=== PATIENT | female | born 1985 | race Hispanic/Latino ===

== ENCOUNTER 2019-05-08 11:24 | Emergency (ER) | payer SELFPAY ==
--- NOTE | 2019-05-08 13:03 | ER ---
Nurse's Notes [facility] Name: Yesi Mcgee Age: 33 yrs Sex: Female : 1985 Arrival Date: 05/08/2019 Time: 11:27 Bed 23 Private MD: Diagnosis: Dental caries;Fever, unspecified Presentation: 05/08 11:43 Presenting complaint: Patient states: Had tooth pulled 4 days ago and is now aa1 experiencing pain, fever and headaches with anxiety after the procedure despite taking antibiotics. Transition of care: patient was not received from another setting of care. Onset of symptoms was May 05, 2019. Risk Assessment: Do you want to hurt yourself or someone else? Patient reports no desire to harm self or others. Initial Sepsis Screen: Does the patient meet any 2 criteria? No. Patient's initial sepsis screen is negative. Does the patient have a suspected source of infection? No. Patient's initial sepsis screen is negative. Care prior to arrival: None. 11:43 Method Of Arrival: Ambulatory aa1 11:43 Acuity: KATHE 4 aa1 Historical: - Allergies: 11:42 No Known Allergies; aa1 - Home Meds: 11:42 Dexamethasone Oral [Active]; Metronidazole Oral [Active]; Cephalexin Oral [Active]; aa1 - PSHx: 11:42 None; aa1 - Immunization history:: Adult Immunizations up to date. - Social history:: Smoking status: Patient/guardian denies using tobacco. - Ebola Screening: : Patient denies exposure to infectious person Patient denies travel to an Ebola-affected area in the 21 days before illness onset. - Family history:: not pertinent. Screenin:12 Abuse screen: Denies threats or abuse. Denies injuries from another. Nutritional ss screening: No deficits noted. Tuberculosis screening: Never had TB. Fall Risk None identified. Assessment: 11:45 General: Appears uncomfortable, Behavior is cooperative, anxious, Reports chills for ss 2-3 days, fever for 2-3 days, feeling ill for 2-3 days, fatigue for 2-3 days. Pain: Complains of pain in left mandible and left jaw Pain currently is 10 out of 10 on a pain scale. Neuro: Level of Consciousness is awake, alert, obeys commands, Oriented to person, place, time, situation. Cardiovascular: Capillary refill < 3 seconds is brisk in bilateral fingers. Respiratory: Airway is patent Respiratory effort is even, unlabored, Respiratory pattern is regular, symmetrical. GI: No signs and/or symptoms were reported involving the gastrointestinal system. : Reports burning with urination, urinary frequency. EENT: Nares are clear. Derm: Skin is intact, is healthy with good turgor, Skin is dry, Skin is pink, warm \T\ dry. normal. Vital Signs: 11:40 BP 166 / 109; Pulse 114; Resp 20; Temp 99.4(TE); Pulse Ox 100% on R/A; Weight 40.82 kg; aa1 Pain 10; ED Course: 11:27 Patient arrived in ED. am2 11:30 Patient has correct armband on for positive identification. ss 11:42 Arm band placed on right wrist. aa1 11:44 Triage completed. aa1 12:38 Miko Hollingsworth MD is Attending Physician. mckenzie 13:11 Lauryn Wu RN is Primary Nurse. ss 13:11 No provider procedures requiring assistance completed. Patient did not have IV access ss during this emergency room visit. Administered Medications: 13:12 Drug: Augmentin 875 mg Route: PO; ss 13:17 Follow up: Response: Medication administered at discharge. ss Outcome: 13:03 Discharge ordered by . [facility] 13:11 Discharged to home ambulatory, with family. ss 13:11 Condition: good 13:11 Discharge instructions given to patient, family, Instructed on discharge instructions, follow up and referral plans. medication usage, Demonstrated understanding of instructions, follow-up care, medications, Prescriptions given X 1. 13:18 Patient left the ED. ss Signatures: Padmini Chau, RN RN aa1 Miko Hollingsworth MD MD cha Smirch, Shelby, RN RN ss Moreno, Amanda amAnna
--- NOTE | 2019-05-08 13:04 | EDPHYS ---
Physician Documentation [facility] Name: Yesi Mcgee Age: 33 yrs Sex: Female : 1985 Arrival Date: 05/08/2019 Time: 11:27 Bed 23 Private MD: ED Physician Miko Hollingsworth HPI: 05/08 12:58 This 33 yrs old Female presents to ER via Ambulatory with complaints of mckenzie Headache, Fever, dental pain, Anxiety. 12:58 The patient complains of pain to the left cheek, mouth, left jaw and left mandible. [facility] describes the headache as aching. Onset: The symptoms/episode began/occurred 2 day(s) ago. Associated signs and symptoms: The patient has no apparent associated signs or symptoms. Severity of symptoms: At its worst the pain was mild, in the emergency department the pain is unchanged. Headache History: The patient has had previous headaches and this one is similar to previous episodes. The patient has not experienced similar symptoms in the past. Historical: - Allergies: 11:42 No Known Allergies; aa1 - Home Meds: 11:42 Dexamethasone Oral [Active]; Metronidazole Oral [Active]; Cephalexin Oral [Active]; aa1 - PSHx: 11:42 None; aa1 - Immunization history:: Adult Immunizations up to date. - Social history:: Smoking status: Patient/guardian denies using tobacco. - Ebola Screening: : Patient denies exposure to infectious person Patient denies travel to an Ebola-affected area in the 21 days before illness onset. - Family history:: not pertinent. ROS: 12:58 Constitutional: Negative for fever, chills, and weight loss, Eyes: Negative for injury, mckenzie pain, redness, and discharge, Neck: Negative for injury, pain, and swelling, Cardiovascular: Negative for chest pain, palpitations, and edema, Respiratory: Negative for shortness of breath, cough, wheezing, and pleuritic chest pain, Abdomen/GI: Negative for abdominal pain, nausea, vomiting, diarrhea, and constipation, Back: Negative for injury and pain, : Negative for injury, bleeding, discharge, and swelling, MS/Extremity: Negative for injury and deformity, Skin: Negative for injury, rash, and discoloration, Neuro: Negative for headache, weakness, numbness, tingling, and seizure, Psych: Negative for depression, anxiety, suicide ideation, homicidal ideation, and hallucinations, Allergy/Immunology: Negative for hives, rash, and allergies, Endocrine: Negative for neck swelling, polydipsia, polyuria, polyphagia, and marked weight changes, Hematologic/Lymphatic: Negative for swollen nodes, abnormal bleeding, and unusual bruising. 12:58 ENT: Positive for Teeth pain Exam: 12:58 Constitutional: This is a well developed, well nourished patient who is awake, alert, mckenzie and in no acute distress. Eyes: Pupils equal round and reactive to light, extra-ocular motions intact. Lids and lashes normal. Conjunctiva and sclera are non-icteric and not injected. Cornea within normal limits. Periorbital areas with no swelling, redness, or edema. ENT: Nares patent. No nasal discharge, no septal abnormalities noted. Tympanic membranes are normal and external auditory canals are clear. Oropharynx with no redness, swelling, or masses, exudates, or evidence of obstruction, uvula midline. Mucous membranes moist. Neck: Trachea midline, no thyromegaly or masses palpated, and no cervical lymphadenopathy. Supple, full range of motion without nuchal rigidity, or vertebral point tenderness. No Meningismus. Chest/axilla: Normal chest wall appearance and motion. Nontender with no deformity. No lesions are appreciated. Cardiovascular: Regular rate and rhythm with a normal S1 and S2. No gallops, murmurs, or rubs. Normal PMI, no JVD. No pulse deficits. Respiratory: Lungs have equal breath sounds bilaterally, clear to auscultation and percussion. No rales, rhonchi or wheezes noted. No increased work of breathing, no retractions or nasal flaring. Abdomen/GI: Soft, non-tender, with normal bowel sounds. No distension or tympany. No guarding or rebound. No evidence of tenderness throughout. Back: No spinal tenderness. No costovertebral tenderness. Full range of motion. Skin: Warm, dry with normal turgor. Normal color with no rashes, no lesions, and no evidence of cellulitis. MS/ Extremity: Pulses equal, no cyanosis. Neurovascular intact. Full, normal range of motion. Neuro: Awake and alert, GCS 15, oriented to person, place, time, and situation. Cranial nerves II-XII grossly intact. Motor strength 5/5 in all extremities. Sensory grossly intact. Cerebellar exam normal. Normal gait. Psych: Awake, alert, with orientation to person, place and time. Behavior, mood, and affect are within normal limits. 12:58 Head/face: Noted is swelling, that is mild, of the left jaw and left cheek. Vital Signs: 11:40 BP 166 / 109; Pulse 114; Resp 20; Temp 99.4(TE); Pulse Ox 100% on R/A; Weight 40.82 kg; aa1 Pain 05/19; MDM: 12:38 [facility] 13:02 Data reviewed: vital signs, nurses notes, lab test result(s), urinalysis. [facility] 05/08 13:06 Order name: Urine Dipstick--Ancillary (enter results) 05/08 13:06 Order name: Urine --Ancillary (enter results) 05/08 13:18 Order name: Urine Culture ss Administered Medications: 13:12 Drug: Augmentin 875 mg Route: PO; ss 13:17 Follow up: Response: Medication administered at discharge. ss Disposition: 05/08/19 13:03 Discharged to Home. Impression: Dental caries, Fever, unspecified. - Condition is Stable. - Discharge Instructions: Dental Pain, Fever, Adult, Urinary Tract Infection, Adult, Urinary Tract Infection, Adult, [id number], Dental Pain, [id number], Fever, Adult, [id number]. - Prescriptions for Augmentin 875- 125 mg Oral Tablet - take 1 tablet by ORAL route every 12 hours for 7 days; 14 tablet. - Medication Reconciliation Form, Thank You Letter, Antibiotic Education, Prescription Opioid Use form. - Follow up: Private Physician; When: 2 - 3 days; Reason: Recheck today's complaints, Continuance of care, Re-evaluation by your physician. - Problem is new. - Symptoms have improved. Signatures: Dispatcher [employer] Padmini Kahn RN RN aa1 Miko Hollingsworth MD MD cha Smirch, Shelby, RN RN ss Corrections: (The following items were deleted from the chart) 13:18 13:03 05/08/2019 13:03 Discharged to Home. Impression: Dental caries; Fever, ss unspecified. Condition is Stable. Forms are Medication Reconciliation Form, Thank You Letter, Antibiotic Education, Prescription Opioid Use. Follow up: Private Physician; When: 2 - 3 days; Reason: Recheck today's complaints, Continuance of care, Re-evaluation by your physician. Problem is new. Symptoms have improved. mckenzie
[2019-05-08] MEDS ORDERED: AMOX/K CLAV 875 MG TAB ONE (13:10)
[2019-05-08 13:27] VITALS: BP 166/109; TEMP 99.4; O2SAT 100
[2019-05-08 13:45] LABS: Urine Blood 1+ (NEG); Urine Glucose NEGATIVE (NEG); Urine Protein NEGATIVE (NEG); Urine Specific Gravity 1.015 (1.005-1.030)
== END 2019-05-08 13:18 | disposition home or self-care (01) ==
LOC: ER 11:24
DX: K02.9 Dental caries, unspecified (principal); R50.9 Fever, unspecified
CPT/HCPCS: 81003; 81025; 87086; 87088; 99283